=== PATIENT | male | born 1990 | race Caucasian/White ===

== ENCOUNTER 2024-05-06 06:36 | Emergency (ER) | payer OTHER, SELFPAY ==
--- OUTSIDE RECORDS SUMMARY | 2024-05-06 06:38 | XMS_ITS | Clinical Summary ---
Author Organization [employer] [facility] Address [place], [place] [address] Care Team Providers Care Shelving Supervisor Name Role Phone None, Primary Care Provider Unavailabl e Allergies No known active allergies Medications No known medications Active Problems No known active problems Immunizations Name Administration Dates Next Due Tdap 03/16/2007 Family History Medical History Relation Name Comments Diabetes Maternal Grandmother Relation Name Status Comments Maternal Grandmother Social History Tobacco Use Types Packs/Day Years Used Date Smoking Tobacco: Never Smokeless Tobacco: Never Alcohol Use Standard Drinks/Week Comments Not Asked 0 (1 standard drink = 0.6 oz pur e alcohol) Sex and Gender Information Value Date Recorded Sex Assigned at Not on file 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 Gender Identity Not on file Sexual Orientation Not on file Obstetrics History Last Filed Vital Signs Vital Sign Reading Time Taken Comments Blood Pressure 118/74 08/05/2011 10:47 AM CDT Pulse 60 08/05/2011 10:47 AM CDT Temperature 36.2 C (97.1 F) 08/05/2011 10:47 AM CDT Respiratory Rate 16 12/23/2004 6:06 PM CDT Oxygen Saturation 100% 12/23/2004 6:06 PM CDT Inhaled Oxygen Concentration - - Weight 83.9 kg (185 lb) 08/05/2011 10:47 AM CDT Height 197.5 cm (6' 5.75) 08/05/2011 10:47 AM C DT Body Mass Index 21.52 08/05/2011 10:47 AM CDT Plan of Treatment Health Maintenance Due Date Last Done Comments Depression screening for age 12+ 2004 HIV for age 15-65 01/29/2007 BMI (ht and wt on same day) for age 18+ 01/29/2010 Hepatitis C screening for ag e 18-79 01/29/2010 Tetanus booster 03/16/2017 03/16/2007 COVID-19 vaccine series (2023- season) 2023 Influenza for age 9-49 11/29/2023 Tdap Completed 03/16/2007 Pneumococcal series for age 6-49 Aged Out No longer eligible based on patient's age to complete this topic Insurance [employer] NON-XC[employer] EMP [address] [id number] Care Teams Shelving Supervisor Relationship Specialty Start Date End Date None, Dr Armstrong PCP - General 12/23/04
[2024-05-06 06:41] VITALS: BP 145/90; PULSE 82; RESP 18; TEMP 36.7; O2SAT 100; BMI 29.6
--- OUTSIDE RECORDS SUMMARY | 2024-05-06 07:57 | XMS_ITS | Clinical Summary ---
Author Organization [employer] 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
--- NOTE | 2024-05-06 07:59 | ED.GENADULT ---
HPI - General Adult General Chief complaint: Extremity Pain/Injury, Upper Stated complaint: Finger lac - injury Time Seen by Provider: 05/06/24 06:52 Source: patient Mode of arrival: ambulatory Limitations: no limitations History of Present Illness HPI narrative: 34 year-old male presents the emergency department 1/2 hour after an injury to his right index finger. 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 His finger got stuck between 2 logs and when he pulled his hand back to release, he felt pain in the tip of the finger. He got back in the tract and removed his glove and realized that the finger tip was hanging by a very small sliver of skin. Because of this he presents to the emergency department. He did try rinsing everything out really well at home with tap water and covered with a towel. Has not taken any medication to help with symptoms. He is not immunocompromised, he does not take any anticoagulants. There is no intoxication. No prior history of surgery or similar injury to this area in the past. Reports benign past medical history, no major long-term health problems. No long-term medications or allergies. ROS is notable for the injury to the right 2nd finger tip only, otherwise denies times 12 systems. Related Data Previous Rx's ?Medication ?Instructions ?Recorded celecoxib 200 mg capsule (Celebrex) 200 mg PO DAILY #20 caps 05/06/24 cyclobenzaprine 10 mg tablet 10 mg PO HS PRN muscle spasm #14 05/06/24 tabs doxycycline hyclate 100 mg capsule 100 mg PO BID #40 caps 05/06/24 Allergies Allergy/AdvReac Type Severity Reaction Status Date / Time No Known Drug Allergies Allergy Verified 05/06/24 06:40 [facility] Social History Smoking Status: Never smoker Do you use any of these nicotine containing products: None Second hand tobacco smoke exposure: No How often do you have a drink containing alcohol: 2-4 times a month How many standard drinks containing alcohol do you have on a typical day: 1 or 2 How often do you have six or more drinks on one occasion: Never AUDIT-C Alcohol total score: 2 Non-prescribed substance use: denies use service: No Exam Const: Vital Signs, click to edit/add: Vital Signs - 24 hr 05/06/24 06:41 Temperature 98.1 F Pulse Rate [Pulse Oximeter] 82 Respiratory Rate 18 Blood Pressure [Le ft Upper Arm] 145/90 H Pulse Oximetry 100 Oxygen Delivery Me thod Room Air Documenting provider has reviewed patient's vital signs: yes Common normals: no apparent distress and alert Other: Friendly and cooperative, great historian. HENMT: Common normals: normocephalic and oropharynx normal Head and scalp: normocephalic Face and sinus: normal facial exam Mouth: oral and palatal mucosa normal Eye: Common normals: conjunctivae normal General eye: normal appearance of both eyes Conjunctiva: conjunctiva(e) normal Neck & C-Spine: General: normal visual inspection Resp: Common normals: normal respiratory effort and no use of accessory muscles Effort & inspection: able to speak in complete sentences Cardio: Other: Normal radial pulses, regular bilaterally. Extremity: Other: Left hand appears normal. Normal range of motion of fingers wrists. Right finger has obvious avulsion injury to the tip of the right index finger including the nail. It is held together by about a 6 mm area of skin only on the lateral pad of the distal 2nd finger. Bone remains attached to the proximal finger, the distal could does contain the entire nail which seems to have broke away just proximal to the nail bed. Was nearly a perfect could removal but it does reapproximate on to the finger tip well with manipulation. Unfortunately, the avulsed pad is quite dusky. Delayed capillary refill noted in this section. The remainder of the finger has normal range of motion, flexion extension abduction and adduction. Fingers 1, 3 4 and 5 have no injury and function normally. Neuro: Sensorium/orientation: alert Speech: speech normal Psych: Attitude: engaged Activity/motor behavior: appropriate eye contact Thought content: normal thought content Insight: insight good Judgement: judgment good Skin: Common normals: no rashes or lesions noted General skin exam: no rashes or lesions noted Course Course ED Course: Fingers carefully examined and then cleansed with sterile saline. Elected not to use more caustic agents as will be attempting to get the able. Portion to regrow after on to the proximal end. No signs of foreign body. Very clean. Risks and benefits of reattachment explain to patient. I did let him know that this area will likely become necrotic and he will likely lose the nail long-term but this can act as an excellent natural bandage if stitch on well and the underlying layers may graft and eventually grow in healthy skin. It would be high risk for infection and he will likely lose sensation in the pad of the finger but since the injury is distal to the DI P, he should still regain excellent function of the finger and hand. Verbal consent is obtained. Procedure: Reattachment of a pulsed finger tip could and nail. After cleansing, 5 mL of 1% lidocaine were injected in a digital block fashion 2 mL on each side and then 1 mL in the distal pad of the finger. It was then cleansed with chlorhexidine gently. Three simple interrupted sutures were used to re-injure the nail to the underlying proximal finger matrix. This held very well. Attention was then turned to the superficial layer. A total of 8 simple interrupted 4-0 Monocryl sutures were used to reattached the finger tip could with excellent reapproximation and hemostasis. Covered in antibiotic ointment and then 2 x 2 gauze for padding and Band-Aids with medical tape. Tolerated well. Tdap is updated prior to discharge. Patient will start doxycycline for 3 weeks. Counseled to make an appointment in 10-14 days to have the sutures removed. Counseled on wound care. He will leave this dressing in place for 24 hours and then starting tomorrow morning, he may shower as usual, keeping the bandage in place and then remove following his shower, wash gently with soap and water, cover with antibiotic ointment and then bandage in a similar fashion to what was done here in the ED. He needs to wear gloves when working, I attempt to keep dry and clean as much as possible. Even with proper treatment, may still be a risk of infection, alarm symptoms reviewed that would warrant ED presentation. Doxycycline sent pharmacy. Prescriptions for cyclobenzaprine at bedtime for pain as well as daily Celebrex given. Counseled on Tylenol 1000 mg q.6 p.r.n.. Counseled that the skin will likely become necrotic on the tip of the finger but will hopefully graft from the bottom up and if he does keep it clean, infection can likely be avoided. This is his best chance of having restorative function to the tip of the finger, rationale is discussed. Vital Signs Vital signs: Initial Vital Signs Temperature 98.1 F 05/06/24 06:41 Temperature Source Temporal Artery Scan 05/06/24 06:41 Pulse Rate 82 05/06/24 06:41 Pulse Rhythm Regular 05/06/24 06:41 Respiratory Rate 18 05/06/24 06:41 Blood Pressure 145/90 H 05/06/24 06:41 Blood Pressure Mean 108 H 05/06/24 06:41 Blood Pressure Position Semi-Fowlers 05/06/24 06:41 Pulse Oximetry 100 05/06/24 06:41 Oxygen Delivery Method Room Air 05/06/24 06:41 Vital Signs Temperature 98.1 F 05/06/24 06:41 Pulse Rate 82 05/06/24 06:41 Respiratory Rate 18 05/06/24 06:41 Blood Pressure 145/90 H 05/06/24 06:41 Pulse Oximetry 100 05/06/24 06:41 Oxygen Delivery Method Room Air 05/06/24 06:41 Temperature 98.1 F 05/06/24 06:41 Pulse Rate 82 05/06/24 06:41 Respiratory Rate 18 05/06/24 06:41 Blood Pressure 145/90 H 05/06/24 06:41 Pulse Oximetry 100 05/06/24 06:41 Oxygen Delivery Method Room Air 05/06/24 06:41 Discharge Plan Discharge Clinical Impression: Avulsion of finger tip Patient Disposition: Home, Self-Care Condition: Improved Instructions: Skin Avulsion (ED) Additional Instructions: Your tetanus shot was updated today and will be due again in 2034 unless you have another significant injury. The finger tip was able to be sewed back on but I do have significant concerns about the blood flow to the nail and pad of the finger. You will most likely lose this nail permanently. The finger will have significant scarring and will not have feeling in the tip of the finger long-term but you should have full movement and the ability to make a tight fist once things heal. Even though the blood flow does seem compromise to the tip of the finger, it will act as a natural bandage so that the wound underneath can heel and the under layers of the skin may regrasped properly. The tip of the finger will likely turn dusky which is whitish bluish color and then dry out and potentially even turn black. This is because of the lack of blood flow and is expected. Eventually though, new skin should form underneath. There were stitches placed in the under layers that will not need to be removed and the black stitches placed in the skin layer will need to be taken out in 10-14 days, preferably on the longer and of that. Please make an appointment in the clinic to have these removed. You would placed on antibiotics 2 times daily for the next 3 weeks to help prevent infection and allow proper healing. Please try to leave the current dressing in place for the next 24 hours. Tomorrow morning, you may shower as usual and then after the shower, remove the bandage. Wash the wound gently with simple soap and tap water. Do not apply hydrogen peroxide, alcohol or other agents that will damage the skin that we are trying to graft. Let it dry out completely and then reapply antibiotic ointment and then a couple of 2 x 2 gauze pads over the tip of the finger. Then secure with bandages, medical tape or whichever product you find best. Try to avoid getting the wound wet and avoid trauma as much as possible. Try to wear gloves to help protect the healing wound. Even with proper care, infection may still set in. If you have increased redness, significant drainage or severe swelling, high fevers or other signs of complication, please return to the emergency department. It will take several months for this to heal completely. In addition to the antibiotics you were given a couple medicines to help with pain. The 1st is a medication called Celebrex. This is an anti-inflammatory pain medication. You may take 1 pill once daily, preferably in the morning. Do not use additional Aleve or ibuprofen on top of this. Hopefully this last well enough through the day to help take the edge off of the pain. Tylenol is a completely different family of medication and you may take a 1000 mg of that every 6 hours. Once the pain improves, you do not need to use either of those medications. I have also given you a muscle relaxant, cyclobenzaprine to use at bedtime as the throbbing pain tends to be most bothersome then. Activity Level: Activity as Tolerated Discharge Diet: Regular Prescriptions: New doxycycline hyclate 100 mg capsule 100 mg PO BID Qty: 40 0RF cyclobenzaprine 10 mg tablet 10 mg PO HS PRN (Reason: muscle spasm) Qty: 14 0RF Rx Instructions: May cause drowsiness, intended for bedtime or evening use only celecoxib [Celebrex] 200 mg capsule 200 mg PO DAILY Qty: 20 0RF Rx Instructions: Anti-inflammatory pain medication, use once daily instead of ibuprofen or Aleve Follow Up/Referrals: Breana Hernandez PA-C [Primary Care Provider] - Stand Alone Forms: [employer] Info Instructions
[2024-05-06] MEDS: ACETAMINOPHEN 500 MG TABLET 1000 MG PO (08:04)
[2024-05-06] MEDS: CELECOXIB 200 MG CAPSULE PO (08:05)
[2024-05-06] MEDS: DOXYCYCLINE HYCLATE 100 MG PO (08:06)
[2024-05-06] MEDS: TETANUS/DIPHTH/PERTUSSIS 0.5 ML SYRINGE IM (08:11)
== END 2024-05-06 08:27 | disposition home or self-care (01) ==
PROVIDERS: Emergency Provider Family Medicine; PCP Physician Assistant Medical
DX: S61.310A Laceration without foreign body of right index finger with damage to nail, initial encounter (principal); W23.0XXA Caught, crushed, jammed, or pinched between moving objects, initial encounter
CPT/HCPCS: 12001; 90471; 90715; 99283; A9270